=== PATIENT | male | born 1985 | race African-American/Black ===

== ENCOUNTER 2020-12-30 09:53 | Emergency (ER) | payer OTHER ==
[~2020-12-30] VITALS: Ht 170.2 cm; Wt 59.0 kg
[2020-12-30] MEDS ORDERED: MEDROLDOSEPACK PO (12:59)
[2020-12-30] MEDS ORDERED: NAPROSYN500 MG PO (12:59)
[2020-12-30] MEDS ORDERED: HYDROCODON-ACE1 EAC7 PO (13:03)
[2020-12-30 13:26] VITALS: BP 124/68
== END 2020-12-30 13:27 | disposition home or self-care (01) ==
LOC: M.ERS 09:53
DX: M25.512 Pain in left shoulder (principal)